=== PATIENT | male | born 1960 | race Caucasian/White ===

== ENCOUNTER 2017-09-04 04:27 | Emergency (ER) | payer OTHER ==
[~2017-09-04] VITALS: Ht 5897.9 cm; Wt 113.4 kg
--- NOTE | 2017-09-04 04:51 | NUR ---
DR. PINEDA AT BEDSIDE FOR MSE.
--- NOTE | 2017-09-04 05:30 | NUR ---
Patient discharged to home in stable conditon. Written and verbal after care instructions given. Patient verbalizes understanding of instructions. PATIENT LEFT WITH STABLE GAIT.
[2017-09-04 05:32] VITALS: BP 141/87
== END 2017-09-04 05:33 | disposition home or self-care (01) ==
LOC: ER 04:29
DX: G56.22 Lesion of ulnar nerve, left upper limb (principal); J44.9 Chronic obstructive pulmonary disease, unspecified; F17.200 Nicotine dependence, unspecified, uncomplicated
CPT/HCPCS: 73080; 99284; A4663

== ENCOUNTER 2017-12-08 01:52 | Emergency (ER) | payer OTHER ==
[~2017-12-08] VITALS: Ht 188 cm; Wt 104.3 kg
--- NOTE | 2017-12-08 02:15 | NUR ---
DR. MARSHALL AT BEDSIDE FOR MSE.
[2017-12-08] MEDS ORDERED: ACETAMINOPHEN ES 500 MG TABLET PO ONE (02:30)
[2017-12-08] MEDS ORDERED: IBUPROFEN 800 MG TABLET PO ONE (02:30)
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
[2017-12-08] MEDS ORDERED: IBUPROFEN 800 MG TABLET ONE (02:31)
[2017-12-08] MEDS ORDERED: ACETAMINOPHEN ES 500 MG TABLET ONE (02:32)
--- NOTE | 2017-12-08 03:08 | NUR ---
Patient discharged to home in stable conditon. Written and verbal after care instructions given. Patient verbalizes understanding of instructions. Patient discharged from ER. Pt received splint but denies to wear it home at this time. Provided gait/crutch training.
[2017-12-08 03:11] VITALS: BP 112/76
== END 2017-12-08 03:16 | disposition home or self-care (01) ==
LOC: ER 01:59
DX: S86.011A Strain of right Achilles tendon, initial encounter (principal); J44.9 Chronic obstructive pulmonary disease, unspecified; F17.210 Nicotine dependence, cigarettes, uncomplicated; G89.29 Other chronic pain; M54.9 Dorsalgia, unspecified; X58.XXXA Exposure to other specified factors, initial encounter; Y93.A2 Activity, calisthenics; Y92.89 Other specified places as the place of occurrence of the external cause; Y99.8 Other external cause status
CPT/HCPCS: A4663; A9150

== ENCOUNTER 2023-12-12 03:04 | Emergency (ER) | payer OTHER ==
[~2023-12-12] VITALS: Ht 188 cm; Wt 113.4 kg
[2023-12-12] MEDS ORDERED: IBUPROFEN 600 MG TABLET ONE (03:52)
[2023-12-12] MEDS: IBUPROFEN 600 MG TABLET PO ONE (03:57)
[2023-12-12 04:52] VITALS: BP 153/101; O2SAT 97
[2023-12-12] MEDS ORDERED: IBUP-1953 PO (15:33)
== END 2023-12-12 04:52 | disposition home or self-care (01) ==
LOC: ER 03:04
DX: M54.16 Radiculopathy, lumbar region (principal); J44.9 Chronic obstructive pulmonary disease, unspecified; F17.200 Nicotine dependence, unspecified, uncomplicated
CPT/HCPCS: 72131; A4606; A4663

== ENCOUNTER 2023-12-12 15:05 | Emergency (ER) | payer OTHER ==
[~2023-12-12] VITALS: Ht 188 cm; Wt 113.4 kg
[2023-12-12 15:26] VITALS: O2SAT 96
[2023-12-12] MEDS ORDERED: IBUP-1953 PO (15:33)
== END 2023-12-12 16:35 | disposition home or self-care (01) ==
LOC: ER 15:07
DX: R42 Dizziness and giddiness (principal); M54.9 Dorsalgia, unspecified; F17.210 Nicotine dependence, cigarettes, uncomplicated; H93.19 Tinnitus, unspecified ear; J44.9 Chronic obstructive pulmonary disease, unspecified; Z79.899 Other long term (current) drug therapy; V89.2XXA Person injured in unspecified motor-vehicle accident, traffic, initial encounter; Y93.89 Activity, other specified; Y92.89 Other specified places as the place of occurrence of the external cause; Y99.8 Other external cause status
CPT/HCPCS: A4606; A4663